=== PATIENT | male | born 1985 | race Hispanic/Latino ===

== ENCOUNTER 2018-03-10 01:56 | Emergency (ER) | payer SELFPAY | END 2018-03-10 02:53 | disposition home or self-care (01) | LOC: ERS 01:56 | DX: K59.00 Constipation, unspecified (principal); F17.210 Nicotine dependence, cigarettes, uncomplicated | CPT/HCPCS: 99283 ==

== ENCOUNTER 2018-07-08 16:46 | Emergency (ER) | payer SELFPAY | END 2018-07-08 16:55 | disposition left against medical advice (07) | LOC: ERS 16:46 | DX: Z53.21 Procedure and treatment not carried out due to patient leaving prior to being seen by health care provider (principal) ==